=== PATIENT | male | born 1955 | race Caucasian/White ===

== ENCOUNTER 2019-01-05 23:07 | Emergency (ER) | payer MEDICARE ==
[~2019-01-05] VITALS: Ht 165.1 cm; Wt 59.0 kg
[~2019-01-05 23:07] MED LIST: Bactrim Ds Tab1 EACH PO; Clindamycin HC150 MG PO; ESOM20; HYDSUL200; HYDSUL200 PO; Motrin800 MG PO; Norco 5-325 Ta1 EACH PO; OMEP20ER PO; OXYC15ER PO; Percocet 5-3251 EACH PO; UNKOWN ABX; Ultram50 MG PO
[2019-01-05] MEDS ORDERED: Bactrim Ds Tab1 EACH PO (23:49)
== END 2019-01-06 00:11 | disposition home or self-care (01) ==
LOC: ER 23:07
DX: L02.415 Cutaneous abscess of right lower limb (principal); F17.210 Nicotine dependence, cigarettes, uncomplicated; Z88.0 Allergy status to penicillin; Z88.5 Allergy status to narcotic agent; Z88.8 Allergy status to other drugs, medicaments and biological substances
CPT/HCPCS: 99283

== ENCOUNTER → 2020-05-13 | Outpatient (CLI) | payer MEDICARE ==
[2020-05-13 18:50] LABS: CHOL/HDL RATIO 2.4; Cholesterol 166 mg/dL (50-200); HDL Cholesterol 69 mg/dL (>39); LDL/HDL RATIO 1.3; Low Density Lipoprotein Chol 87 mg/dL (0-110); Triglycerides 52 mg/dL (30-160); Very Low Density Lipoprot Chol 10 mg/dL (6-32)
== END | disposition home or self-care (01) ==
LOC: LAB 17:17 → LAB SHORT 17:17
PROVIDERS: Nurse Practitioner Family
DX: E11.65 Type 2 diabetes mellitus with hyperglycemia (principal)
CPT/HCPCS: 80061; 83036

== ENCOUNTER → 2022-03-21 | Outpatient (CLI) | payer MEDICARE ==
[2022-03-21 16:01] LABS: BASOPHILS ABSOLUTE AUTO 0.03 K/mm3 (0.00-0.23); BASOPHILS PERCENT AUTO 1 % (0-2); EOSINOPHILS ABSOLUTE AUTO 0.22 K/mm3 (0.00-0.68); EOSINOPHILS PERCENT AUTO 3 % (0-6); Hemoglobin 13.8 g/dL (13.5-17.5); IMMATURE GRAN ABSOLUTE AUTO 0.02 K/mm3 (0.00-0.10); IMMATURE GRAN PERCENT AUTO 0 % (0-1); LYMPHOCYTES ABSOLUTE AUTO 1.95 K/mm3 (0.84-5.20); LYMPHOCYTES PERCENT AUTO 31 % (21-46); MONOCYTES ABSOLUTE AUTO 0.58 K/mm3 (0.16-1.47); MONOCYTES PERCENT AUTO 9 % (4-13); Mean Corpuscular HGB 29.7 pg (26.0-34.0); Mean Corpuscular HGB Conc 32.1 g/dL (31.5-36.5); Mean Corpuscular Volume 93 fL (80-100); Mean Platelet Volume 9.8 fL (9.1-12.4); NEUTROPHILS ABSOLUTE AUTO 3.59 K/mm3 (1.96-9.15); NEUTROPHILS PERCENT AUTO 56 % (41-73); Platelet Count 249 K/mm3 (150-400); RDW Coefficient Variation 13.7 % (11.7-14.2); RDW Standard Deviation 47.2 fL (35.1-46.3); Red Blood Cell Count 4.64 M/mm3 (4.30-5.90); White Blood Cell Count 6.39 K/mm3 (4.00-11.30)
[2022-03-21 16:02] LABS: Albumin, Blood 3.9 g/dL (3.4-5.0); Albumin/Globulin Ratio 1.1 (0.8-1.8); Bilirubin, Total 0.2 mg/dL (0.1-1.0); Bun/Creatinine Ratio 25.9 (12.0-20.0); Calcium, Blood 9.4 mg/dL (8.5-10.1); Creatinine, Blood 1.12 mg/dL (0.60-1.20); Globulin, Blood 3.5 g/dL (2.2-4.0); Potassium, Blood 4.6 mmol/L (3.5-5.5); Total Protein, Blood 7.4 g/dL (6.4-8.2)
== END | disposition home or self-care (01) ==
LOC: LAB SHORT 14:49 → LAB 14:49
PROVIDERS: Nurse Practitioner Family
DX: R73.9 Hyperglycemia, unspecified (principal); L08.89 Other specified local infections of the skin and subcutaneous tissue; M01.X71 Direct infection of right ankle and foot in infectious and parasitic diseases classified elsewhere
CPT/HCPCS: 80053; 83036; 85025

== ENCOUNTER 2022-10-01 20:46 | Emergency (ER) | payer MEDICARE ==
[~2022-10-01] VITALS: Ht 165.1 cm; Wt 59.0 kg
[2022-10-01 20:51] VITALS: BP 140/82
== END 2022-10-01 22:17 | disposition home or self-care (01) ==
LOC: ER 20:46
DX: S90.31XA Contusion of right foot, initial encounter (principal); W22.8XXA Striking against or struck by other objects, initial encounter; Z88.0 Allergy status to penicillin; Z88.5 Allergy status to narcotic agent; Z88.8 Allergy status to other drugs, medicaments and biological substances; F17.210 Nicotine dependence, cigarettes, uncomplicated
CPT/HCPCS: 73630; 99283-25

== ENCOUNTER 2023-03-25 09:23 | Emergency (ER) | payer MEDICARE ==
[~2023-03-25] VITALS: Ht 165.1 cm; Wt 56.7 kg
[2023-03-25 10:30] VITALS: BP 167/94
== END 2023-03-25 10:31 | disposition home or self-care (01) ==
LOC: ER 09:23
DX: M79.671 Pain in right foot (principal); E11.9 Type 2 diabetes mellitus without complications; F17.210 Nicotine dependence, cigarettes, uncomplicated
CPT/HCPCS: 99283

== ENCOUNTER → 2024-02-22 | Outpatient (CLI) | payer MEDICARE, OTHER ==
[~2024-02-22] MED LIST changes: +CEPH500 PO
[2024-02-22 11:38] LABS: Source, Urine Clean Catch
[2024-02-22 18:48] LABS: Appearance, Urine Clear (Clear); Bilirubin, Urine Neg (Neg); Blood, Urine 1+ (Neg); Color, Urine Yellow (P-Yellow); Glucose Qualitative, Urine Neg (Neg); Ketones, Urine Neg (Neg); Leukocyte Esterase, Urine Neg (Neg); Nitrite, Urine Neg (Neg); Protein, Urine 1+ (Neg); Specific Gravity, Urine 1.025 (1.003-1.022); Urobilinogen, Urine NORM (Normal)
[2024-02-22 19:16] LABS: Bacteria Rare /hpf; Red Blood Cells, Urine 0-2 /hpf (0-2); Squamous Epithelial Cells Not Seen /hpf (Few); White Blood Cells, Urine 0-2 /hpf (0-5)
== END | disposition home or self-care (01) ==
LOC: LAB SHORT 10:05 → LAB 10:05
PROVIDERS: Family Medicine
DX: R10.9 Unspecified abdominal pain (principal)
CPT/HCPCS: 81001

== ENCOUNTER 2024-05-28 12:31 | Day surgery (SDC) | payer MEDICARE, OTHER ==
[~2024-05-28] VITALS: Ht 165.1 cm; Wt 57.5 kg
[~2024-05-28 12:31] MED LIST changes: +Balanced Salt Epinephrine Irrigation Solution 500 mL IR SCH; +Lidocaine HCl/Pf 1% 5 ML VIAL XX SCH; +Moxifloxacin HCL 0.5 MG/0.1 ML 0.4MLSYR RIGHTEYE SCH; +PHENYLEPHRINE\\TROPICAMIDE\\TETRACAINE OPHTHALMIC DILATING SOLN RIGHTEYE PRN; +Povidone-Iodine 450 DROP/30 ML Solution ONE; +Povidone-Iodine 450 DROP/30 ML Solution RIGHTEYE SCH; +TAMSULOSIN HCL0.4 M1 PO; +Tetracaine HCl/Pf 0.5% Opth Soln 4 ml ONE; +VARENICLINE TA1 EACH PO
[2024-05-28] MEDS ORDERED: DIAZEPAM5 M2 PO (12:50)
--- NOTE | 2024-05-28 13:01 | NUR ---
05/28/24 1301 Georgette Garrison AT 1249 PLEDGET AT 1250
[2024-05-28] MEDS ORDERED: Glycopyrrolate 0.2 MG/ML 5ML VIAL ONE (13:09)
[2024-05-28] MEDS ORDERED: Tetracaine HCl 0.5% Opth Soln 15 ml RIGHTEYE ONE (13:10)
[2024-05-28 13:47] VITALS: BP 144/45
== END 2024-05-28 14:03 | disposition home or self-care (01) ==
LOC: ORSCSDS 12:31
PROVIDERS: Student in an Organized Health Care Education/Training Program
PROC: 08RJ3JZ Replacement of Right Lens with Synthetic Substitute, Percutaneous Approach (ICD-10-PCS; principal; 2024-05-28 13:45)
DX: E11.36 Type 2 diabetes mellitus with diabetic cataract (principal); H25.811 Combined forms of age-related cataract, right eye; H21.81 Floppy iris syndrome; E11.22 Type 2 diabetes mellitus with diabetic chronic kidney disease; N18.9 Chronic kidney disease, unspecified; N40.0 Benign prostatic hyperplasia without lower urinary tract symptoms; I25.2 Old myocardial infarction; Z79.899 Other long term (current) drug therapy
CPT/HCPCS: 82947; V2632

== ENCOUNTER 2024-06-04 12:28 | Day surgery (SDC) | payer MEDICARE, OTHER ==
[~2024-06-04] VITALS: Ht 165.1 cm; Wt 56.4 kg
[~2024-06-04 12:28] MED LIST changes: +DIAZEPAM5 M2 PO; +Moxifloxacin HCL 0.5 MG/0.1 ML 0.4MLSYR LEFTEYE SCH; -Moxifloxacin HCL 0.5 MG/0.1 ML 0.4MLSYR RIGHTEYE SCH; +PHENYLEPHRINE\\TROPICAMIDE\\TETRACAINE OPHTHALMIC DILATING SOLN LEFTEYE PRN; -PHENYLEPHRINE\\TROPICAMIDE\\TETRACAINE OPHTHALMIC DILATING SOLN RIGHTEYE PRN; +Povidone-Iodine 450 DROP/30 ML Solution LEFTEYE SCH; -Povidone-Iodine 450 DROP/30 ML Solution RIGHTEYE SCH
--- NOTE | 2024-06-04 13:44 | NUR ---
06/04/24 1344 Adam Chua CALL LIGHT WITHIN REACH. PT HAD A SLIGHT IRREGULAR HR. DAISHA VINSON ANESTHESIOLOGIST ORDERED 12 LEAD EKG.
[2024-06-04 14:38] VITALS: BP 112/71
== END 2024-06-04 15:00 | disposition home or self-care (01) ==
LOC: ORSCSDS 12:28
PROVIDERS: Student in an Organized Health Care Education/Training Program
PROC: 08RK3JZ Replacement of Left Lens with Synthetic Substitute, Percutaneous Approach (ICD-10-PCS; principal; 2024-06-04 13:45)
DX: E11.36 Type 2 diabetes mellitus with diabetic cataract (principal); H25.812 Combined forms of age-related cataract, left eye; Z96.1 Presence of intraocular lens; I25.2 Old myocardial infarction; E11.22 Type 2 diabetes mellitus with diabetic chronic kidney disease; R56.9 Unspecified convulsions; N18.9 Chronic kidney disease, unspecified; F17.210 Nicotine dependence, cigarettes, uncomplicated; Z79.899 Other long term (current) drug therapy
CPT/HCPCS: 82947; 93005; 93010; V2632